=== PATIENT | male | born 1965 | race Caucasian/White ===

== ENCOUNTER 2024-06-10 07:21 | Day surgery (SDC) | payer OTHER ==
[2024-06-10] MEDS: IV FLUID CONTINUATION 1,000 ML IV ONE (07:46)
[2024-06-10 07:54] VITALS: TEMP 96.9
[2024-06-10] MEDS: LACTATED RINGERS 1,000 ML IV SCH (08:03)
--- NOTE | 2024-06-10 08:15 | P.GSHP ---
History of Present Illness H&P Date: 06/10/24 CHIEF COMPLAINT: Colon screen HISTORY OF PRESENT ILLNESS: The patient is a 58-year-old male who presents for colon screen. Lower endoscopy was offered for further evaluation and management. PAST MEDICAL HISTORY: Please see list. PAST SURGICAL HISTORY: Please see list. MEDICATIONS: Please see list. ALLERGIES: Please see list. SOCIAL HISTORY: No illicit drug use FAMILY HISTORY: No reports of Crohn disease or ulcerative colitis. REVIEW OF ORGAN SYSTEMS: CONSTITUTIONAL: No reports of fevers or chills. PHYSICAL EXAM: VITAL SIGNS: Stable GENERAL: Well-developed pleasant in no acute distress. HEENT: No scleral icterus. Extraocular movements grossly intact. Moist buccal mucosa. NECK: Supple without lymphadenopathy. CHEST: Unlabored respirations. Equal bilateral excursions. CARDIOVASCULAR: Regular rate and rhythm. Distal 2+ pulses. ABDOMEN: Soft, nontender, nondistended. MUSCULOSKELETAL: No clubbing, cyanosis, or edema. ASSESSMENT: 1. Colon screen. PLAN: 1. Recommend proceeding with a lower endoscopy Past Medical History Past Medical History: Hyperlipidemia, Rheumatoid Arthritis (RA) History of Any Multi-Drug Resistant Organisms: None Reported Additional Past Surgical History / Comment(s): tiana in upper rt leg, fx hands landry/skin grafts surgery Past Anesthesia/Blood Transfusion Reactions: No Reported Reaction Smoking Status: Former smoker - Past Family History Father Family Medical History: No Reported History Medications and Allergies Home Medications Medication Instructions Recorded Confirmed Type Atorvastatin [Lipitor] 80 mg PO DAILY 06/08/24 06/10/24 History FLUoxetine HCL 40 mg PO DAILY 06/08/24 06/10/24 History Folic Acid 1 mg PO SUMOTUTHFRSA 06/08/24 06/10/24 History LORazepam [Lorazepam] 0.5 mg PO DAILY PRN 06/08/24 06/10/24 History metHOTREXate sodium [Methotrexate] 7 tab PO WE 06/08/24 06/10/24 History Allergies Allergy/AdvReac Type Severity Reaction Status Date / Time nsaids Allergy Swelling Uncoded 06/08/24 15:55 Surgical - Exam Vital Signs Temp Pulse Resp BP Pulse Ox 96.9 F L 58 L 18 144/82 96 06/10/24 07:53 06/10/24 07:53 06/10/24 07:53 06/10/24 07:53 06/10/24 07:53
[2024-06-10] MEDS ORDERED: PROPOFOL 10 MG/ML 20 ML VIAL IV ONE (08:21)
--- NOTE | 2024-06-10 08:42 | P.PCN ---
Date of Procedure: 06/10/24 Description of Procedure: PREOPERATIVE DIAGNOSIS: Colonoscopy screening POSTOPERATIVE DIAGNOSIS: Tubular adenoma transverse colon Sigmoid diverticulosis OPERATION: Colonoscopy to the ileocecal valve and appendiceal orifice, cecum Colonoscopy with cold forceps biopsy SURGEON: Chelsy Daley MD. ANESTHESIA: MAC. INDICATIONS: The patient is an 58-year-old male who presents for colonoscopy screening. Benefits and risks were described and informed consent was obtained. DESCRIPTION OF PROCEDURE: The patient had undergone Sutab prep. The patient had been brought into the operating room and laid in the left lateral decubitus position. After adequate intravenous sedation, the rectum was examined with 2% lidocaine jelly. The prostate was unremarkable. External hemorrhoids were encountered. The rectal tone was within normal limits. No lesions were palpated in the rectal vault. An Olympus colonoscope was advanced until the cecum, ileocecal valve and appendiceal orifice were clearly viewed. The prep was fair. Sigmoid diverticulosis was encountered. Colonic polyps were found and removed. No evidence of focal colitis was found. Retroflexion of the scope demonstrated grade 2 internal hemorrhoids without active bleeding or inflammation. The colon was desufflated. The patient had tolerated the procedure well. Withdrawal time was over 6 minutes. FINDINGS: Aronchick preparation quality scale 2+ (1-5) Internal hemorrhoids, grade 1 External hemorrhoids, grade 1. No arteriovenous malformations. Sigmoid diverticulosis Removal of 1 polyp: - Cold forceps biopsy at mid transverse colon, 5 mm adenoma No focal colitis. RECOMMENDATIONS: Repeat colonoscopy 3 years, 2027 Plan - Discharge Summary Discharge Rx Participant: No New Discharge Prescriptions: Continue LORazepam 0.5 mg PO DAILY PRN PRN Reason: Anxiety FLUoxetine HCL 40 mg PO DAILY metHOTREXate sodium [Methotrexate] 7 tab PO WE Folic Acid 1 mg PO SUMOTUTHFRSA Atorvastatin [Lipitor] 80 mg PO DAILY Discharge Medication List Atorvastatin [Lipitor] 80 mg PO DAILY 06/08/24 [History] FLUoxetine HCL 40 mg PO DAILY 06/08/24 [History] Folic Acid 1 mg PO SUMOTUTHFRSA 06/08/24 [History] LORazepam 0.5 mg PO DAILY PRN 06/08/24 [History] metHOTREXate sodium [Methotrexate] 7 tab PO WE 06/08/24 [History] Follow up Appointment(s)/Referral(s): Chelsy Daley MD [STAFF PHYSICIAN] - As Needed Patient Instructions/Handouts: *Surgery [facility] - (Anesthesia) Discharge Instructions Outpatient Surgery, Diverticulosis Diet (GEN), Colorectal Polyps (GEN) Activity/Diet/Wound Care/Special Instructions: Repeat colonoscopy 3 years, 2027 Discharge Disposition: HOME SELF-CARE
[2024-06-10 08:44] VITALS: PULSE 52; RESP 16
[2024-06-10 09:02] VITALS: BP 147/80
== END 2024-06-10 09:20 | disposition home or self-care (01) ==
LOC: ORWHC2ENDO 07:21
PROVIDERS: ATTEND Surgery Plastic and Reconstructive Surgery
DX: Z12.11 Encounter for screening for malignant neoplasm of colon (principal); D12.3 Benign neoplasm of transverse colon; K64.1 Second degree hemorrhoids; K57.30 Diverticulosis of large intestine without perforation or abscess without bleeding; E78.5 Hyperlipidemia, unspecified; M06.9 Rheumatoid arthritis, unspecified; F41.9 Anxiety disorder, unspecified; F32.A Depression, unspecified; F41.0 Panic disorder [episodic paroxysmal anxiety]; Z79.899 Other long term (current) drug therapy; Z87.891 Personal history of nicotine dependence; Z88.6 Allergy status to analgesic agent
CPT/HCPCS: 88305; 45380; J2704

== ENCOUNTER → 2024-09-24 | Outpatient (CLI) | payer OTHER ==
--- NOTE | 2024-09-24 11:35 | XR ---
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 Mild strandy bibasilar densities. Otherwise, no consolidation or pleural e ffusion. IMPRESSION: Borderline heart size and strandy atelectasis in the lower lungs. Otherwise, no definite acute proces s. [facility], Workstation: [email or web address], 09/24/2024 11:33 AM
== END | disposition home or self-care (01) ==
LOC: RADXRMAIN 10:45
PROVIDERS: ATTEND Family Medicine
DX: J98.11 Atelectasis (principal); Z79.899 Other long term (current) drug therapy
CPT/HCPCS: 71046